=== PATIENT | male | born 1970 | race Caucasian/White ===

== ENCOUNTER 2022-12-18 06:11 | Emergency (ER) | payer MEDICAID, OTHER ==
[~2022-12-18] VITALS: Ht 185.4 cm; Wt 93.0 kg
[2022-12-18 06:21] VITALS: BP_SYST 167; PULSE 62; RESP 18; TEMP 97.9; O2SAT 98
[2022-12-18] MEDS ORDERED: KETOROLAC TROMETHAMINE 60 MG/2 ML VIAL IM ONE (06:30)
[2022-12-18 07:08] LABS: BASOPHILS % (AUTO) 0.4 % (0.0-2.0); EOSINOPHILS % (AUTO) 0.5 % (0.0-4.0); HEMATOCRIT 45.8 % (36-54); LYMPHOCYTES # (AUTO) 1.4 K/uL (1.0-5.5); LYMPHOCYTES % (AUTO) 16.2 % (20.5-51.5); MEAN CORPUSCULAR HEMOGLOBIN 27 pg (27-31); MEAN CORPUSCULAR HGB CONC 33 % (32-36); MEAN CORPUSCULAR VOLUME 84 fL (79.0-98.0); MONOCYTES # (AUTO) 0.5 K/uL (0.0-1.0); MONOCYTES % (AUTO) 6.1 % (1.7-9.3); NEUTROPHILS # (AUTO) 6.5 K/uL (1.8-7.7); NEUTROPHILS % (AUTO) 76.8 % (40.0-70.0); PLATELET COUNT (AUTO) 209 K/uL (130-430); RED BLOOD CELL COUNT(AUTO) 5.46 MIL/uL (4.2-6.2); RED CELL DISTRIBUTION WIDTH 13.5 % (9.0-15.0); WHITE BLOOD COUNT (AUTO) 8.5 K/uL (4.8-10.8)
[2022-12-18 07:16] LABS: INR 1.1 (0.80-1.20); PROTHROMBIN TIME 11.7 SECS (9.5-12.5)
[2022-12-18 07:17] LABS: ANION GAP 7 (5-15); CALCIUM 8.9 mg/dL (8.4-11.0); CARBON DIOXIDE 29 mmol/L (23-29); CHLORIDE 102 mmol/L (98-107); GFR AFRICAN AMERICAN 81 mL/min (>90); GLUCOSE 197 mg/dL (74-106); POTASSIUM 4.3 mmol/L (3.5-5.1); SODIUM SERUM 138 mmol/L (136-145); UREA NITROGEN, BLOOD 16 mg/dL (8-21)
[2022-12-18 07:22] LABS: GFR NON AFRICAN-AMERICAN 67 mL/min (>90)
[2022-12-18 07:31] LABS: ALANINE AMINOTRANSFERASE 103 U/L (12-78); ALBUMIN 3.9 g/dL (3.4-4.8); AMYLASE 34 U/L (0-100); ASPARTATE AMINOTRANSFERASE 61 U/L (10-37); LIPASE 111 U/L (73-393); TOTAL BILIRUBIN 0.5 mg/dL (0.0-1.0); TOTAL PROTEIN, SERUM 7.3 g/dL (6.4-8.3)
[2022-12-18] MEDS ORDERED: HYDROcodone/ACETAMIN 10-325 MG TAB PO ONE (07:45)
[2022-12-18] MEDS ORDERED: ONDANSETRON 4 MG ODT TAB PO ONE (07:45)
[2022-12-18 07:49] LABS: ACETONE, SERUM NEGATIVE (NEGATIVE)
[2022-12-18] MEDS ORDERED: HYDR-3927 PO (09:41)
[2022-12-18] MEDS ORDERED: IBUP-1971 PO (09:41)
[2022-12-18 09:42] LABS: BILIRUBIN,URINE 1+ (NEGATIVE); CLARITY/URINE CLEAR (CLEAR); COLOR,URINE YELLOW (YELLOW); GLUCOSE,URINE 1+ (NEGATIVE); KETONES,URINE TRACE (NEGATIVE); LEUKOCYTE ESTERASE ,URINE NEGATIVE (NEGATIVE); NITRITE, URINE NEGATIVE (NEGATIVE); PH,URINE 5.5 (5.0-8.0); PROTEIN URINE NEGATIVE (NEGATIVE)
[2022-12-18 09:44] LABS: BLOOD, URINE TRACE (NEGATIVE)
[2022-12-18] MEDS ORDERED: MORPHINE 4 MG INJ. 4 MG/ML VIAL IM ONE (09:45)
[2022-12-18 09:51] LABS: BACTERIA,URINE RARE /HPF (None Seen); MUCUS,URINE 1+ /LPF (None Seen); WBC,URINE 0-3 /HPF (0-3)
[2022-12-18 10:22] VITALS: BP_SYST 142; PULSE 63; RESP 16; TEMP 98.1; O2SAT 98
== END 2022-12-18 10:26 | disposition home or self-care (01) ==
LOC: SED 06:11
DX: N23 Unspecified renal colic (principal); Z79.899 Other long term (current) drug therapy
CPT/HCPCS: 99285; 74176; 80053; 81000; 82009; 82150; 83690; 85025; 85610; 85730; 36415; 76376; 96372; 83605; 82397; Q0162; J1885; J2270